=== PATIENT | female | born 1955 | race Caucasian/White ===

== ENCOUNTER 2020-01-13 13:47 | Inpatient (IN) ==
[2020-01-13] MEDS ORDERED: Ibuprofen 600 MG TABLET PO PRN (17:39)
[2020-01-13] MEDS ORDERED: *HR* HYDROcodone/Acet 5/325 mg TABLET PO PRN (17:39)
[2020-01-13] MEDS ORDERED: NON-FORMULARY MEDICATION 1 EACH EACH (Alendronate Sodium/Vitamin D3 [Fosamax Plus D 70 Mg- PO SCH ×2 (17:45→20:00)
[2020-01-13] MEDS ORDERED: NON-FORMULARY MEDICATION 1 EACH EACH (Atorvastatin Calcium [Lipitor] 20 MG) PO SCH (21:00)
[2020-01-13] MEDS: Ibuprofen 600 MG TABLET PO PRN (21:14)
[2020-01-13] MEDS: *HR* Rivaroxaban 10 MG TABLET PO SCH (21:14)
[2020-01-14 05:41] LABS: Basophils # 0.1 K/mcL (0.0-0.2); Basophils % 1.1 %; Eosinophils # 0.3 K/mcL (0.0-0.6); Eosinophils % 4.5 %; Hematocrit 28.1 % (35.3-44.9); Hemoglobin 9.6 g/dL (11.5-15.4); Immature Granulocytes % 2.5 % (0-4); Lymphocytes # 1.7 K/mcL (0.6-4.6); Lymphocytes % 26.6 %; Mean Corpuscular HGB Conc 34.2 g/dL (31.6-35.5); Mean Corpuscular Hemoglobin 34.5 pg (28.0-33.3); Mean Corpuscular Volume 101.1 fL (83.0-100.0); Mean Platelet Volume 8.8 fL (9.4-12.4); Monocytes # 0.8 K/mcL (0.0-1.3); Monocytes % 12.4 %; Neutrophils # 3.4 K/mcL (1.6-8.9); Nucleated Red Blood Cells 0.3 /100 WBC (0); Platelet Count 360 K/mcL (140-400); Red Blood Count 2.78 M/mcL (3.82-4.97); Red Cell Distribution Width 13.5 % (11.5-14.5); Segmented Neutrophils % 52.9 %; White Blood Count 6.5 K/mcL (4.3-11.1)
[2020-01-14 06:07] LABS: BUN/Creatinine Ratio 15 (6-26); Blood Urea Nitrogen 7 mg/dL (8-23); Calcium 8.7 mg/dL (8.6-10.3); Carbon Dioxide 32 mEq/L (23-29); Chloride 97 mEq/L (98-107); Glucose 97 mg/dL (70-105); Osmolality,Calculated 278 (280-300); Potassium 4.2 mEq/L (3.5-5.1); Sodium 135 mEq/L (136-145); eGFR For African Americans > 60 (> 60); eGFR For Non-African Americans > 60 (> 60)
[2020-01-14] MEDS: *HR* HYDROcodone/Acet 5/325 mg TABLET PO PRN ×3 (06:11→18:05)
[2020-01-14] MEDS ORDERED: lisinopriL 20 MG TABLET PO SCH (09:00)
[2020-01-14] MEDS ORDERED: Cholecalciferol (D-3) 1,000 UNIT (25MCG) TABLET PO SCH ×2 (09:00→16:00)
[2020-01-14] MEDS: Cholecalciferol (D-3) 1,000 UNIT (25MCG) TABLET PO SCH (09:13)
[2020-01-14] MEDS: lisinopriL 20 MG TABLET PO SCH (09:13)
[2020-01-14] MEDS ORDERED: *HR* Rivaroxaban 10 MG TABLET PO SCH (17:00)
[2020-01-14] MEDS ORDERED: Ergocalciferol (VIT D2) 50,000 UNIT (1.25MG) CAP PO SCH (17:39)
[2020-01-14] MEDS: polyethylene glycoL 3350 17 GM POWD.PACK PO PRN (18:05)
[2020-01-14] MEDS: *HR* Rivaroxaban 10 MG TABLET PO SCH (18:07)
[2020-01-15] MEDS: *HR* HYDROcodone/Acet 5/325 mg TABLET PO PRN ×2 (06:04→20:57)
[2020-01-15] MEDS: Cholecalciferol (D-3) 1,000 UNIT (25MCG) TABLET PO SCH (07:53)
[2020-01-15] MEDS: lisinopriL 20 MG TABLET PO SCH (07:53)
[2020-01-15] MEDS: polyethylene glycoL 3350 17 GM POWD.PACK PO PRN (07:54)
[2020-01-15] MEDS ORDERED: Bisacodyl 10 MG RECTAL SUPPOSITORY RC PRN (14:47)
[2020-01-15] MEDS: *HR* Rivaroxaban 10 MG TABLET PO SCH (17:28)
[2020-01-16 07:24] LABS: Basophils # 0.1 K/mcL (0.0-0.2); Basophils % 0.6 %; Eosinophils # 0.2 K/mcL (0.0-0.6); Eosinophils % 1.8 %; Hematocrit 28.2 % (35.3-44.9); Hemoglobin 9.6 g/dL (11.5-15.4); Immature Granulocytes % 1.3 % (0-4); Lymphocytes # 1.4 K/mcL (0.6-4.6); Lymphocytes % 16.3 %; Mean Corpuscular Hemoglobin 34.7 pg (28.0-33.3); Mean Corpuscular Volume 101.8 fL (83.0-100.0); Mean Platelet Volume 8.7 fL (9.4-12.4); Monocytes # 1.3 K/mcL (0.0-1.3); Monocytes % 14.7 %; Neutrophils # 5.7 K/mcL (1.6-8.9); Platelet Count 411 K/mcL (140-400); Red Blood Count 2.77 M/mcL (3.82-4.97); Red Cell Distribution Width 14.5 % (11.5-14.5); Segmented Neutrophils % 65.3 %; White Blood Count 8.7 K/mcL (4.3-11.1)
[2020-01-16 07:39] LABS: BUN/Creatinine Ratio 16 (6-26); Blood Urea Nitrogen 8 mg/dL (8-23); Carbon Dioxide 28 mEq/L (23-29); Chloride 96 mEq/L (98-107); Glucose 95 mg/dL (70-105); Osmolality,Calculated 272 (280-300); Potassium 3.8 mEq/L (3.5-5.1); Sodium 132 mEq/L (136-145); eGFR For African Americans > 60 (> 60); eGFR For Non-African Americans > 60 (> 60)
[2020-01-16] MEDS: Cholecalciferol (D-3) 1,000 UNIT (25MCG) TABLET PO SCH (08:51)
[2020-01-16] MEDS: *HR* HYDROcodone/Acet 5/325 mg TABLET PO PRN ×2 (08:51→17:29)
[2020-01-16] MEDS: lisinopriL 20 MG TABLET PO SCH (08:51)
[2020-01-16] MEDS: *HR* Rivaroxaban 10 MG TABLET PO SCH (17:29)
[2020-01-16] MEDS: Ibuprofen 600 MG TABLET PO PRN (20:16)
[2020-01-17] MEDS: lisinopriL 20 MG TABLET PO SCH (08:56)
[2020-01-17] MEDS: *HR* HYDROcodone/Acet 5/325 mg TABLET PO PRN ×3 (08:56→20:25)
[2020-01-17] MEDS: Cholecalciferol (D-3) 1,000 UNIT (25MCG) TABLET PO SCH (08:56)
[2020-01-17] MEDS: *HR* Rivaroxaban 10 MG TABLET PO SCH (16:49)
[2020-01-17] MEDS: Ibuprofen 600 MG TABLET PO PRN (20:25)
[2020-01-18] MEDS: Cholecalciferol (D-3) 1,000 UNIT (25MCG) TABLET PO SCH (07:57)
[2020-01-18] MEDS: lisinopriL 20 MG TABLET PO SCH (07:57)
[2020-01-18] MEDS: *HR* HYDROcodone/Acet 5/325 mg TABLET PO PRN ×3 (08:14→22:48)
[2020-01-18] MEDS: *HR* Rivaroxaban 10 MG TABLET PO SCH (16:53)
[2020-01-18] MEDS: Ibuprofen 600 MG TABLET PO PRN (22:48)
[2020-01-19] MEDS: Cholecalciferol (D-3) 1,000 UNIT (25MCG) TABLET PO SCH (09:34)
[2020-01-19] MEDS: lisinopriL 20 MG TABLET PO SCH (09:34)
[2020-01-19] MEDS: *HR* HYDROcodone/Acet 5/325 mg TABLET PO PRN ×3 (09:37→21:19)
[2020-01-19] MEDS: *HR* Rivaroxaban 10 MG TABLET PO SCH (17:26)
[2020-01-19] MEDS: Ibuprofen 600 MG TABLET PO PRN (21:19)
[2020-01-20] MEDS: lisinopriL 20 MG TABLET PO SCH (09:53)
[2020-01-20] MEDS: Cholecalciferol (D-3) 1,000 UNIT (25MCG) TABLET PO SCH (09:53)
[2020-01-20] MEDS: *HR* HYDROcodone/Acet 5/325 mg TABLET PO PRN ×3 (10:04→21:32)
[2020-01-20] MEDS: *HR* Rivaroxaban 10 MG TABLET PO SCH (16:33)
[2020-01-20] MEDS: tiZANidine 4 MG TABLET PO PRN (21:32)
[2020-01-21] MEDS ORDERED: Ergocalciferol (VIT D2) 50,000 UNIT (1.25MG) CAP PO SCH (09:00)
[2020-01-21] MEDS: Cholecalciferol (D-3) 1,000 UNIT (25MCG) TABLET PO SCH (09:06)
[2020-01-21] MEDS: lisinopriL 20 MG TABLET PO SCH (09:06)
[2020-01-21] MEDS: *HR* HYDROcodone/Acet 5/325 mg TABLET PO PRN ×3 (09:07→22:11)
[2020-01-21] MEDS: *HR* Rivaroxaban 10 MG TABLET PO SCH (18:07)
[2020-01-22] MEDS: *HR* HYDROcodone/Acet 5/325 mg TABLET PO PRN ×4 (04:24→20:01)
[2020-01-22] MEDS: tiZANidine 4 MG TABLET PO PRN ×2 (04:24→20:01)
[2020-01-22] MEDS: lisinopriL 20 MG TABLET PO SCH (09:51)
[2020-01-22] MEDS: polyethylene glycoL 3350 17 GM POWD.PACK PO PRN (09:53)
[2020-01-22] MEDS: Cholecalciferol (D-3) 1,000 UNIT (25MCG) TABLET PO SCH (09:53)
[2020-01-22] MEDS: *HR* Rivaroxaban 10 MG TABLET PO SCH (17:27)
[2020-01-23] MEDS: *HR* HYDROcodone/Acet 5/325 mg TABLET PO PRN ×4 (03:43→21:46)
[2020-01-23] MEDS: lisinopriL 20 MG TABLET PO SCH (09:13)
[2020-01-23] MEDS: polyethylene glycoL 3350 17 GM POWD.PACK PO SCH (09:13)
[2020-01-23] MEDS: Cholecalciferol (D-3) 1,000 UNIT (25MCG) TABLET PO SCH (09:14)
[2020-01-23] MEDS: Ibuprofen 600 MG TABLET PO PRN (11:27)
[2020-01-23] MEDS: *HR* Rivaroxaban 10 MG TABLET PO SCH (17:17)
[2020-01-24] MEDS: Cholecalciferol (D-3) 1,000 UNIT (25MCG) TABLET PO SCH (07:53)
[2020-01-24] MEDS: *HR* HYDROcodone/Acet 5/325 mg TABLET PO PRN ×2 (07:53→17:35)
[2020-01-24] MEDS: lisinopriL 20 MG TABLET PO SCH (07:54)
[2020-01-24] MEDS: polyethylene glycoL 3350 17 GM POWD.PACK PO SCH (07:54)
[2020-01-24] MEDS: Ibuprofen 600 MG TABLET PO PRN (11:51)
[2020-01-24] MEDS: *HR* Rivaroxaban 10 MG TABLET PO SCH (17:31)
[2020-01-24] MEDS: tiZANidine 4 MG TABLET PO PRN (21:57)
[2020-01-25] MEDS: *HR* HYDROcodone/Acet 5/325 mg TABLET PO PRN ×3 (04:07→22:12)
[2020-01-25] MEDS: polyethylene glycoL 3350 17 GM POWD.PACK PO SCH (09:20)
[2020-01-25] MEDS: lisinopriL 20 MG TABLET PO SCH (09:20)
[2020-01-25] MEDS: Cholecalciferol (D-3) 1,000 UNIT (25MCG) TABLET PO SCH (09:20)
[2020-01-25] MEDS: *HR* Rivaroxaban 10 MG TABLET PO SCH (18:16)
[2020-01-26] MEDS: lisinopriL 20 MG TABLET PO SCH (09:47)
[2020-01-26] MEDS: polyethylene glycoL 3350 17 GM POWD.PACK PO SCH (09:47)
[2020-01-26] MEDS: *HR* HYDROcodone/Acet 5/325 mg TABLET PO PRN ×3 (09:47→21:21)
[2020-01-26] MEDS: Cholecalciferol (D-3) 1,000 UNIT (25MCG) TABLET PO SCH (09:47)
[2020-01-26] MEDS: *HR* Rivaroxaban 10 MG TABLET PO SCH (16:56)
[2020-01-27] MEDS: Cholecalciferol (D-3) 1,000 UNIT (25MCG) TABLET PO SCH (10:11)
[2020-01-27] MEDS: lisinopriL 20 MG TABLET PO SCH (10:11)
[2020-01-27] MEDS: polyethylene glycoL 3350 17 GM POWD.PACK PO SCH (10:11)
[2020-01-27] MEDS: *HR* HYDROcodone/Acet 5/325 mg TABLET PO PRN ×2 (10:15→16:33)
[2020-01-27] MEDS: *HR* Rivaroxaban 10 MG TABLET PO SCH (16:34)
[2020-01-27] MEDS: Ibuprofen 600 MG TABLET PO PRN (22:10)
[2020-01-28] MEDS: *HR* HYDROcodone/Acet 5/325 mg TABLET PO PRN ×2 (04:20→09:44)
[2020-01-28 06:21] LABS: Basophils # 0.1 K/mcL (0.0-0.2); Basophils % 1.7 %; Eosinophils # 0.8 K/mcL (0.0-0.6); Hematocrit 29.1 % (35.3-44.9); Hemoglobin 9.7 g/dL (11.5-15.4); Immature Granulocytes % 0.5 % (0-4); Lymphocytes # 1.5 K/mcL (0.6-4.6); Lymphocytes % 22.2 %; Mean Corpuscular HGB Conc 33.3 g/dL (31.6-35.5); Mean Corpuscular Volume 102.1 fL (83.0-100.0); Mean Platelet Volume 8.9 fL (9.4-12.4); Monocytes # 0.8 K/mcL (0.0-1.3); Monocytes % 11.9 %; Neutrophils # 3.4 K/mcL (1.6-8.9); Platelet Count 398 K/mcL (140-400); Red Blood Count 2.85 M/mcL (3.82-4.97); Red Cell Distribution Width 13.9 % (11.5-14.5); Segmented Neutrophils % 51.7 %; White Blood Count 6.6 K/mcL (4.3-11.1)
[2020-01-28 06:40] LABS: BUN/Creatinine Ratio 35 (6-26); Blood Urea Nitrogen 17 mg/dL (8-23); Calcium 9.2 mg/dL (8.6-10.3); Carbon Dioxide 27 mEq/L (23-29); Chloride 100 mEq/L (98-107); Glucose 87 mg/dL (70-105); Osmolality,Calculated 281 (280-300); Potassium 4.4 mEq/L (3.5-5.1); Sodium 135 mEq/L (136-145); eGFR For African Americans > 60 (> 60); eGFR For Non-African Americans > 60 (> 60)
[2020-01-28] MEDS: Cholecalciferol (D-3) 1,000 UNIT (25MCG) TABLET PO SCH (09:43)
[2020-01-28] MEDS: polyethylene glycoL 3350 17 GM POWD.PACK PO SCH (09:44)
[2020-01-28] MEDS: lisinopriL 20 MG TABLET PO SCH (09:44)
[2020-01-28] MEDS: Ergocalciferol (VIT D2) 50,000 UNIT (1.25MG) CAP PO SCH (10:39)
[2020-01-28] MEDS: *HR* Rivaroxaban 10 MG TABLET PO SCH (17:52)
[2020-01-28] MEDS: Ibuprofen 600 MG TABLET PO PRN (21:43)
[2020-01-29] MEDS: Cholecalciferol (D-3) 1,000 UNIT (25MCG) TABLET PO SCH (07:54)
[2020-01-29] MEDS: lisinopriL 20 MG TABLET PO SCH (07:54)
[2020-01-29] MEDS: polyethylene glycoL 3350 17 GM POWD.PACK PO SCH (07:54)
[2020-01-29] MEDS: *HR* HYDROcodone/Acet 5/325 mg TABLET PO PRN (08:02)
[2020-01-29] MEDS: *HR* Rivaroxaban 10 MG TABLET PO SCH (16:30)
[2020-01-29] MEDS: Ibuprofen 600 MG TABLET PO PRN (20:36)
[2020-01-30] MEDS: lisinopriL 20 MG TABLET PO SCH (07:48)
[2020-01-30] MEDS: Cholecalciferol (D-3) 1,000 UNIT (25MCG) TABLET PO SCH (07:49)
[2020-01-30] MEDS: polyethylene glycoL 3350 17 GM POWD.PACK PO SCH (07:49)
[2020-01-30] MEDS: *HR* HYDROcodone/Acet 5/325 mg TABLET PO PRN (07:49)
[2020-01-30] MEDS: *HR* Rivaroxaban 10 MG TABLET PO SCH (16:59)
[2020-01-30] MEDS: Ibuprofen 600 MG TABLET PO PRN (20:57)
[2020-01-31] MEDS: lisinopriL 20 MG TABLET PO SCH (08:24)
[2020-01-31] MEDS: Cholecalciferol (D-3) 1,000 UNIT (25MCG) TABLET PO SCH (08:24)
[2020-01-31] MEDS: polyethylene glycoL 3350 17 GM POWD.PACK PO SCH (08:25)
[2020-01-31] MEDS: *HR* HYDROcodone/Acet 5/325 mg TABLET PO PRN ×3 (08:27→20:41)
[2020-01-31] MEDS: *HR* Rivaroxaban 10 MG TABLET PO SCH (16:31)
[2020-02-01] MEDS: lisinopriL 20 MG TABLET PO SCH (09:14)
[2020-02-01] MEDS: Cholecalciferol (D-3) 1,000 UNIT (25MCG) TABLET PO SCH (09:14)
[2020-02-01] MEDS: polyethylene glycoL 3350 17 GM POWD.PACK PO SCH (09:14)
[2020-02-01] MEDS: *HR* HYDROcodone/Acet 5/325 mg TABLET PO PRN ×2 (09:14→19:14)
[2020-02-01] MEDS: *HR* Rivaroxaban 10 MG TABLET PO SCH (17:10)
[2020-02-02] MEDS: Ibuprofen 600 MG TABLET PO PRN (09:30)
[2020-02-02] MEDS: polyethylene glycoL 3350 17 GM POWD.PACK PO SCH (10:10)
[2020-02-02] MEDS: Cholecalciferol (D-3) 1,000 UNIT (25MCG) TABLET PO SCH (10:10)
[2020-02-02] MEDS: lisinopriL 20 MG TABLET PO SCH (10:10)
[2020-02-02] MEDS: *HR* Rivaroxaban 10 MG TABLET PO SCH (16:15)
[2020-02-02] MEDS: *HR* HYDROcodone/Acet 5/325 mg TABLET PO PRN (17:02)
[2020-02-03] MEDS: *HR* HYDROcodone/Acet 5/325 mg TABLET PO PRN ×2 (09:46→15:16)
[2020-02-03] MEDS: Cholecalciferol (D-3) 1,000 UNIT (25MCG) TABLET PO SCH (09:46)
[2020-02-03] MEDS: polyethylene glycoL 3350 17 GM POWD.PACK PO SCH (09:46)
[2020-02-03] MEDS: lisinopriL 20 MG TABLET PO SCH (09:47)
[2020-02-03] MEDS: *HR* Rivaroxaban 10 MG TABLET PO SCH (17:47)
[2020-02-03] MEDS: Ibuprofen 600 MG TABLET PO PRN (17:47)
[2020-02-04] MEDS: lisinopriL 20 MG TABLET PO SCH (09:03)
[2020-02-04] MEDS: polyethylene glycoL 3350 17 GM POWD.PACK PO SCH (09:04)
[2020-02-04] MEDS: Cholecalciferol (D-3) 1,000 UNIT (25MCG) TABLET PO SCH (09:04)
[2020-02-04] MEDS: Ergocalciferol (VIT D2) 50,000 UNIT (1.25MG) CAP PO SCH (09:04)
[2020-02-04] MEDS: *HR* HYDROcodone/Acet 5/325 mg TABLET PO PRN ×2 (09:05→16:00)
[2020-02-04] MEDS: *HR* Rivaroxaban 10 MG TABLET PO SCH (16:00)
[2020-02-04] MEDS: Ibuprofen 600 MG TABLET PO PRN (20:11)
[2020-02-05] MEDS: polyethylene glycoL 3350 17 GM POWD.PACK PO SCH (08:06)
[2020-02-05] MEDS: lisinopriL 20 MG TABLET PO SCH (08:06)
[2020-02-05] MEDS: Cholecalciferol (D-3) 1,000 UNIT (25MCG) TABLET PO SCH (08:06)
[2020-02-05] MEDS: *HR* HYDROcodone/Acet 5/325 mg TABLET PO PRN ×2 (08:20→18:34)
[2020-02-05] MEDS: *HR* Rivaroxaban 10 MG TABLET PO SCH (17:36)
[2020-02-06] MEDS: *HR* HYDROcodone/Acet 5/325 mg TABLET PO PRN ×2 (08:30→20:52)
[2020-02-06] MEDS: lisinopriL 20 MG TABLET PO SCH (08:32)
[2020-02-06] MEDS: Cholecalciferol (D-3) 1,000 UNIT (25MCG) TABLET PO SCH (08:32)
[2020-02-06] MEDS: polyethylene glycoL 3350 17 GM POWD.PACK PO SCH (08:33)
[2020-02-06] MEDS: *HR* Rivaroxaban 10 MG TABLET PO SCH (16:54)
[2020-02-06] MEDS: Ibuprofen 600 MG TABLET PO PRN (16:58)
[2020-02-07] MEDS: lisinopriL 20 MG TABLET PO SCH (09:38)
[2020-02-07] MEDS: Cholecalciferol (D-3) 1,000 UNIT (25MCG) TABLET PO SCH (09:39)
[2020-02-07] MEDS: polyethylene glycoL 3350 17 GM POWD.PACK PO SCH (09:39)
[2020-02-07] MEDS: *HR* HYDROcodone/Acet 5/325 mg TABLET PO PRN ×3 (09:39→22:02)
[2020-02-07] MEDS: *HR* Rivaroxaban 10 MG TABLET PO SCH (17:59)
[2020-02-08] MEDS: Cholecalciferol (D-3) 1,000 UNIT (25MCG) TABLET PO SCH (08:28)
[2020-02-08] MEDS: lisinopriL 20 MG TABLET PO SCH (08:29)
[2020-02-08] MEDS: polyethylene glycoL 3350 17 GM POWD.PACK PO SCH (08:29)
[2020-02-08] MEDS: *HR* Rivaroxaban 10 MG TABLET PO SCH (16:39)
[2020-02-08] MEDS: *HR* HYDROcodone/Acet 5/325 mg TABLET PO PRN (16:40)
[2020-02-08] MEDS: Ibuprofen 600 MG TABLET PO PRN (20:54)
[2020-02-09 07:05] LABS: Basophils # 0.1 K/mcL (0.0-0.2); Basophils % 1.1 %; Eosinophils # 0.8 K/mcL (0.0-0.6); Eosinophils % 11.2 %; Hematocrit 31.6 % (35.3-44.9); Hemoglobin 10.4 g/dL (11.5-15.4); Immature Granulocytes % 0.3 % (0-4); Lymphocytes # 1.8 K/mcL (0.6-4.6); Lymphocytes % 26.1 %; Mean Corpuscular HGB Conc 32.9 g/dL (31.6-35.5); Mean Corpuscular Hemoglobin 33.9 pg (28.0-33.3); Mean Corpuscular Volume 102.9 fL (83.0-100.0); Mean Platelet Volume 9.3 fL (9.4-12.4); Monocytes # 0.8 K/mcL (0.0-1.3); Monocytes % 10.9 %; Neutrophils # 3.5 K/mcL (1.6-8.9); Platelet Count 334 K/mcL (140-400); Red Blood Count 3.07 M/mcL (3.82-4.97); Red Cell Distribution Width 14.2 % (11.5-14.5); Segmented Neutrophils % 50.4 %
[2020-02-09 07:32] LABS: BUN/Creatinine Ratio 42 (6-26); Blood Urea Nitrogen 19 mg/dL (8-23); Calcium 9.3 mg/dL (8.6-10.3); Carbon Dioxide 28 mEq/L (23-29); Chloride 102 mEq/L (98-107); Glucose 81 mg/dL (70-105); Osmolality,Calculated 287 (280-300); Potassium 4.1 mEq/L (3.5-5.1); Sodium 138 mEq/L (136-145); eGFR For African Americans > 60 (> 60); eGFR For Non-African Americans > 60 (> 60)
[2020-02-09] MEDS: Cholecalciferol (D-3) 1,000 UNIT (25MCG) TABLET PO SCH (08:42)
[2020-02-09] MEDS: lisinopriL 20 MG TABLET PO SCH (08:42)
[2020-02-09] MEDS: polyethylene glycoL 3350 17 GM POWD.PACK PO SCH (08:42)
[2020-02-09] MEDS: *HR* Rivaroxaban 10 MG TABLET PO SCH (16:18)
[2020-02-09] MEDS: *HR* HYDROcodone/Acet 5/325 mg TABLET PO PRN (16:18)
[2020-02-09] MEDS: Ibuprofen 600 MG TABLET PO PRN (20:46)
[2020-02-10] MEDS: Cholecalciferol (D-3) 1,000 UNIT (25MCG) TABLET PO SCH (09:27)
[2020-02-10] MEDS: polyethylene glycoL 3350 17 GM POWD.PACK PO SCH (09:28)
[2020-02-10] MEDS: lisinopriL 20 MG TABLET PO SCH (09:28)
[2020-02-10] MEDS: *HR* HYDROcodone/Acet 5/325 mg TABLET PO PRN ×2 (09:28→17:09)
[2020-02-10] MEDS: *HR* Rivaroxaban 10 MG TABLET PO SCH (17:09)
[2020-02-10] MEDS: Ibuprofen 600 MG TABLET PO PRN (20:30)
[2020-02-11] MEDS: lisinopriL 20 MG TABLET PO SCH (10:00)
[2020-02-11] MEDS: Cholecalciferol (D-3) 1,000 UNIT (25MCG) TABLET PO SCH (10:03)
[2020-02-11] MEDS: Ergocalciferol (VIT D2) 50,000 UNIT (1.25MG) CAP PO SCH (10:03)
[2020-02-11] MEDS: *HR* HYDROcodone/Acet 5/325 mg TABLET PO PRN ×2 (10:07→19:59)
[2020-02-11] MEDS: polyethylene glycoL 3350 17 GM POWD.PACK PO SCH (10:10)
[2020-02-11] MEDS: *HR* Rivaroxaban 10 MG TABLET PO SCH (17:02)
[2020-02-12] MEDS: lisinopriL 20 MG TABLET PO SCH (08:59)
[2020-02-12] MEDS: polyethylene glycoL 3350 17 GM POWD.PACK PO SCH (08:59)
[2020-02-12] MEDS: Ibuprofen 600 MG TABLET PO PRN ×2 (08:59→19:58)
[2020-02-12] MEDS: Cholecalciferol (D-3) 1,000 UNIT (25MCG) TABLET PO SCH (09:00)
[2020-02-12] MEDS: *HR* Rivaroxaban 10 MG TABLET PO SCH (17:23)
[2020-02-12] MEDS: *HR* HYDROcodone/Acet 5/325 mg TABLET PO PRN (17:23)
[2020-02-13] MEDS: *HR* HYDROcodone/Acet 5/325 mg TABLET PO PRN ×2 (10:42→19:40)
[2020-02-13] MEDS: polyethylene glycoL 3350 17 GM POWD.PACK PO SCH (10:43)
[2020-02-13] MEDS: lisinopriL 20 MG TABLET PO SCH (10:43)
[2020-02-13] MEDS: Cholecalciferol (D-3) 1,000 UNIT (25MCG) TABLET PO SCH (10:43)
[2020-02-13] MEDS: Ibuprofen 600 MG TABLET PO PRN (13:37)
[2020-02-13] MEDS: *HR* Rivaroxaban 10 MG TABLET PO SCH (17:00)
[2020-02-14] MEDS: Ibuprofen 600 MG TABLET PO PRN (04:18)
[2020-02-14 06:47] VITALS: BP 120/69
[2020-02-14] MEDS: lisinopriL 20 MG TABLET PO SCH (08:15)
[2020-02-14] MEDS: Cholecalciferol (D-3) 1,000 UNIT (25MCG) TABLET PO SCH (08:15)
[2020-02-14] MEDS: *HR* HYDROcodone/Acet 5/325 mg TABLET PO PRN (08:24)
[2020-02-14] MEDS: polyethylene glycoL 3350 17 GM POWD.PACK PO SCH (08:42)
[2020-02-14] MEDS ORDERED: FLU Vac QV 20-21 (6Month+)/PF 0.5 ML SYRINGE IM ONE (11:25)
== END 2020-02-14 11:46 | disposition home health service (06) | DRG 561 ==
LOC: INPPIK 19:15
PROVIDERS: ADMIT Family Medicine; ATTEND Family Medicine

== ENCOUNTER 2020-10-17 16:39 | Inpatient (IN) ==
[2020-10-17] MEDS ORDERED: Sennosides/Docusate Sodium TABLET PO PRN (18:11)
[2020-10-17] MEDS: *HR* HYDROcodone/Acet 5/325 mg TABLET PO PRN (22:11)
[2020-10-18 06:15] LABS: Basophils # 0.1 K/mcL (0.0-0.2); Basophils % 0.9 %; Eosinophils # 0.3 K/mcL (0.0-0.6); Eosinophils % 2.9 %; Hematocrit 33.8 % (35.3-44.9); Hemoglobin 11.5 g/dL (11.5-15.4); Immature Granulocytes % 0.9 % (0-4); Lymphocytes % 22.1 %; Mean Corpuscular Volume 102.7 fL (83.0-100.0); Monocytes # 0.9 K/mcL (0.0-1.3); Monocytes % 9.7 %; Neutrophils # 5.7 K/mcL (1.6-8.9); Platelet Count 310 K/mcL (140-400); Red Blood Count 3.29 M/mcL (3.82-4.97); Red Cell Distribution Width 13.7 % (11.5-14.5); Segmented Neutrophils % 63.5 %; White Blood Count 8.9 K/mcL (4.3-11.1)
[2020-10-18 06:33] LABS: BUN/Creatinine Ratio 17 (6-26); Blood Urea Nitrogen 9 mg/dL (8-23); Calcium 9.2 mg/dL (8.6-10.3); Carbon Dioxide 29 mEq/L (23-29); Chloride 100 mEq/L (98-107); Glucose 94 mg/dL (70-105); Osmolality,Calculated 282 (280-300); Sodium 137 mEq/L (136-145); eGFR For African Americans > 60 (> 60); eGFR For Non-African Americans > 60 (> 60)
[2020-10-18] MEDS: Cholecalciferol (D-3) 1,000 UNIT (25MCG) TABLET PO SCH (08:43)
[2020-10-18] MEDS: *HR* HYDROcodone/Acet 5/325 mg TABLET PO PRN ×2 (08:43→13:54)
[2020-10-18] MEDS: lisinopriL 20 MG TABLET PO SCH (08:44)
[2020-10-18] MEDS: Ibuprofen 600 MG TABLET PO PRN ×2 (08:44→17:10)
[2020-10-18] MEDS: *HR* Rivaroxaban 10 MG TABLET PO SCH (17:10)
[2020-10-18] MEDS: Nicotine 14 MG PATCH.TD24 TD SCH (17:10)
[2020-10-18] MEDS: *HR* HYDROcodone/Acet 7.5/325 mg TABLET PO PRN (20:48)
[2020-10-18] MEDS: Melatonin 3 MG TABLET PO PRN (20:49)
[2020-10-19] MEDS: *HR* HYDROcodone/Acet 7.5/325 mg TABLET PO PRN ×3 (04:10→16:00)
[2020-10-19] MEDS: lisinopriL 20 MG TABLET PO SCH (10:10)
[2020-10-19] MEDS: Nicotine 14 MG PATCH.TD24 TD SCH (10:10)
[2020-10-19] MEDS: Cholecalciferol (D-3) 1,000 UNIT (25MCG) TABLET PO SCH (10:10)
[2020-10-19] MEDS: Ibuprofen 600 MG TABLET PO PRN ×2 (10:11→20:45)
[2020-10-19] MEDS: *HR* HYDROcodone/Acet 5/325 mg TABLET PO PRN (12:43)
[2020-10-19] MEDS: tiZANidine 4 MG TABLET PO PRN (15:59)
[2020-10-19] MEDS: *HR* Rivaroxaban 10 MG TABLET PO SCH (18:09)
[2020-10-19] MEDS ORDERED: 0.9 % Sodium Chloride 500 ML IVC ONE (18:43)
[2020-10-19] MEDS: Melatonin 3 MG TABLET PO PRN (20:45)
[2020-10-20] MEDS: Ibuprofen 600 MG TABLET PO PRN ×2 (06:23→20:33)
[2020-10-20] MEDS: *HR* HYDROcodone/Acet 7.5/325 mg TABLET PO PRN ×2 (06:24→22:07)
[2020-10-20] MEDS: Nicotine 14 MG PATCH.TD24 TD SCH (09:21)
[2020-10-20] MEDS: lisinopriL 20 MG TABLET PO SCH (09:22)
[2020-10-20] MEDS: Cholecalciferol (D-3) 1,000 UNIT (25MCG) TABLET PO SCH (09:22)
[2020-10-20] MEDS: Ergocalciferol (VIT D2) 50,000 UNIT (1.25MG) CAP PO SCH (09:30)
[2020-10-20] MEDS: tiZANidine 4 MG TABLET PO PRN (10:37)
[2020-10-20] MEDS: polyethylene glycoL 3350 17 GM POWD.PACK PO SCH (17:30)
[2020-10-20] MEDS: *HR* HYDROcodone/Acet 5/325 mg TABLET PO PRN (17:30)
[2020-10-20] MEDS: *HR* Rivaroxaban 10 MG TABLET PO SCH (17:31)
[2020-10-20] MEDS: Sennosides/Docusate Sodium TABLET PO SCH (20:35)
[2020-10-20] MEDS: Melatonin 3 MG TABLET PO PRN (22:07)
[2020-10-21] MEDS: Nicotine 14 MG PATCH.TD24 TD SCH (08:22)
[2020-10-21] MEDS: polyethylene glycoL 3350 17 GM POWD.PACK PO SCH (08:22)
[2020-10-21] MEDS: Sennosides/Docusate Sodium TABLET PO SCH ×2 (08:22→21:08)
[2020-10-21] MEDS: Ibuprofen 600 MG TABLET PO PRN ×2 (08:22→22:16)
[2020-10-21] MEDS: *HR* HYDROcodone/Acet 5/325 mg TABLET PO PRN (08:23)
[2020-10-21] MEDS: lisinopriL 20 MG TABLET PO SCH (08:23)
[2020-10-21] MEDS: Cholecalciferol (D-3) 1,000 UNIT (25MCG) TABLET PO SCH (08:24)
[2020-10-21] MEDS: *HR* Rivaroxaban 10 MG TABLET PO SCH (15:46)
[2020-10-21] MEDS: *HR* HYDROcodone/Acet 7.5/325 mg TABLET PO PRN ×2 (15:46→22:16)
[2020-10-21] MEDS: Melatonin 3 MG TABLET PO PRN (22:16)
[2020-10-22] MEDS: *HR* HYDROcodone/Acet 7.5/325 mg TABLET PO PRN ×2 (03:55→23:29)
[2020-10-22 07:32] LABS: Basophils # 0.1 K/mcL (0.0-0.2); Basophils % 1.1 %; Eosinophils # 0.2 K/mcL (0.0-0.6); Eosinophils % 2.3 %; Hematocrit 32.8 % (35.3-44.9); Immature Granulocytes % 0.7 % (0-4); Mean Corpuscular HGB Conc 33.5 g/dL (31.6-35.5); Mean Corpuscular Hemoglobin 34.9 pg (28.0-33.3); Mean Corpuscular Volume 104.1 fL (83.0-100.0); Mean Platelet Volume 9.1 fL (9.4-12.4); Monocytes # 0.9 K/mcL (0.0-1.3); Monocytes % 11.9 %; Neutrophils # 4.3 K/mcL (1.6-8.9); Platelet Count 404 K/mcL (140-400); Red Blood Count 3.15 M/mcL (3.82-4.97); White Blood Count 7.6 K/mcL (4.3-11.1)
[2020-10-22 07:56] LABS: BUN/Creatinine Ratio 20 (6-26); Blood Urea Nitrogen 10 mg/dL (8-23); Calcium 9.1 mg/dL (8.6-10.3); Carbon Dioxide 28 mEq/L (23-29); Chloride 102 mEq/L (98-107); Glucose 88 mg/dL (70-105); Osmolality,Calculated 282 (280-300); Sodium 137 mEq/L (136-145); eGFR For African Americans > 60 (> 60); eGFR For Non-African Americans > 60 (> 60)
[2020-10-22] MEDS: Cholecalciferol (D-3) 1,000 UNIT (25MCG) TABLET PO SCH (08:33)
[2020-10-22] MEDS: *HR* HYDROcodone/Acet 5/325 mg TABLET PO PRN ×2 (08:33→17:20)
[2020-10-22] MEDS: lisinopriL 20 MG TABLET PO SCH (08:33)
[2020-10-22] MEDS: Ibuprofen 600 MG TABLET PO PRN ×2 (08:33→23:28)
[2020-10-22] MEDS: polyethylene glycoL 3350 17 GM POWD.PACK PO SCH (08:34)
[2020-10-22] MEDS: Nicotine 14 MG PATCH.TD24 TD SCH (08:34)
[2020-10-22] MEDS: Sennosides/Docusate Sodium TABLET PO SCH ×2 (08:34→20:37)
[2020-10-22] MEDS: *HR* Rivaroxaban 10 MG TABLET PO SCH (17:17)
[2020-10-22] MEDS: Melatonin 3 MG TABLET PO PRN (23:29)
[2020-10-23] MEDS: Ibuprofen 600 MG TABLET PO PRN ×2 (08:58→22:13)
[2020-10-23] MEDS: *HR* HYDROcodone/Acet 7.5/325 mg TABLET PO PRN ×2 (08:58→22:13)
[2020-10-23] MEDS: polyethylene glycoL 3350 17 GM POWD.PACK PO SCH (09:00)
[2020-10-23] MEDS: Sennosides/Docusate Sodium TABLET PO SCH ×2 (09:00→20:54)
[2020-10-23] MEDS: Cholecalciferol (D-3) 1,000 UNIT (25MCG) TABLET PO SCH (09:00)
[2020-10-23] MEDS: lisinopriL 20 MG TABLET PO SCH (09:00)
[2020-10-23] MEDS: Nicotine 14 MG PATCH.TD24 TD SCH (09:00)
[2020-10-23] MEDS: *HR* HYDROcodone/Acet 5/325 mg TABLET PO PRN (16:09)
[2020-10-23] MEDS: *HR* Rivaroxaban 10 MG TABLET PO SCH (16:09)
[2020-10-23] MEDS: Melatonin 3 MG TABLET PO PRN (22:13)
[2020-10-24] MEDS: polyethylene glycoL 3350 17 GM POWD.PACK PO SCH (10:03)
[2020-10-24] MEDS: Ibuprofen 600 MG TABLET PO PRN (10:03)
[2020-10-24] MEDS: Cholecalciferol (D-3) 1,000 UNIT (25MCG) TABLET PO SCH (10:03)
[2020-10-24] MEDS: *HR* HYDROcodone/Acet 7.5/325 mg TABLET PO PRN (10:03)
[2020-10-24] MEDS: lisinopriL 20 MG TABLET PO SCH (10:03)
[2020-10-24] MEDS: Sennosides/Docusate Sodium TABLET PO SCH ×2 (10:03→21:19)
[2020-10-24] MEDS: Nicotine 14 MG PATCH.TD24 TD SCH (10:04)
[2020-10-24] MEDS: *HR* HYDROcodone/Acet 5/325 mg TABLET PO PRN (17:21)
[2020-10-24] MEDS: *HR* Rivaroxaban 10 MG TABLET PO SCH (17:21)
[2020-10-25] MEDS: Ibuprofen 600 MG TABLET PO PRN ×3 (00:21→21:31)
[2020-10-25] MEDS: Melatonin 3 MG TABLET PO PRN ×2 (00:21→21:31)
[2020-10-25] MEDS: *HR* HYDROcodone/Acet 7.5/325 mg TABLET PO PRN ×3 (00:22→21:31)
[2020-10-25] MEDS: Nicotine 14 MG PATCH.TD24 TD SCH (09:28)
[2020-10-25] MEDS: polyethylene glycoL 3350 17 GM POWD.PACK PO SCH (09:28)
[2020-10-25] MEDS: Sennosides/Docusate Sodium TABLET PO SCH ×2 (09:28→21:27)
[2020-10-25] MEDS: lisinopriL 20 MG TABLET PO SCH (09:29)
[2020-10-25] MEDS: Cholecalciferol (D-3) 1,000 UNIT (25MCG) TABLET PO SCH (09:29)
[2020-10-25] MEDS: *HR* Rivaroxaban 10 MG TABLET PO SCH (16:47)
[2020-10-25] MEDS: *HR* HYDROcodone/Acet 5/325 mg TABLET PO PRN (16:47)
[2020-10-26] MEDS: polyethylene glycoL 3350 17 GM POWD.PACK PO SCH (09:11)
[2020-10-26] MEDS: Sennosides/Docusate Sodium TABLET PO SCH ×2 (09:11→20:56)
[2020-10-26] MEDS: Nicotine 14 MG PATCH.TD24 TD SCH (09:12)
[2020-10-26] MEDS: lisinopriL 20 MG TABLET PO SCH (09:12)
[2020-10-26] MEDS: Cholecalciferol (D-3) 1,000 UNIT (25MCG) TABLET PO SCH (09:12)
[2020-10-26] MEDS: *HR* HYDROcodone/Acet 7.5/325 mg TABLET PO PRN ×2 (09:19→22:10)
[2020-10-26] MEDS: Ibuprofen 600 MG TABLET PO PRN ×2 (09:19→22:10)
[2020-10-26] MEDS: *HR* Rivaroxaban 10 MG TABLET PO SCH (16:10)
[2020-10-26] MEDS: Melatonin 3 MG TABLET PO PRN (22:10)
[2020-10-27] MEDS: lisinopriL 20 MG TABLET PO SCH (08:42)
[2020-10-27] MEDS: polyethylene glycoL 3350 17 GM POWD.PACK PO SCH (08:42)
[2020-10-27] MEDS: Cholecalciferol (D-3) 1,000 UNIT (25MCG) TABLET PO SCH (08:43)
[2020-10-27] MEDS: Nicotine 14 MG PATCH.TD24 TD SCH (08:43)
[2020-10-27] MEDS: Sennosides/Docusate Sodium TABLET PO SCH ×2 (08:43→21:31)
[2020-10-27] MEDS: Ergocalciferol (VIT D2) 50,000 UNIT (1.25MG) CAP PO SCH (08:52)
[2020-10-27] MEDS: Ibuprofen 600 MG TABLET PO PRN ×2 (08:58→23:32)
[2020-10-27] MEDS: *HR* HYDROcodone/Acet 7.5/325 mg TABLET PO PRN (08:58)
[2020-10-27] MEDS: *HR* HYDROcodone/Acet 5/325 mg TABLET PO PRN ×2 (18:17→23:32)
[2020-10-27] MEDS: *HR* Rivaroxaban 10 MG TABLET PO SCH (18:17)
[2020-10-27] MEDS: Melatonin 3 MG TABLET PO PRN (21:28)
[2020-10-28] MEDS: Nicotine 14 MG PATCH.TD24 TD SCH (09:43)
[2020-10-28] MEDS: polyethylene glycoL 3350 17 GM POWD.PACK PO SCH (09:43)
[2020-10-28] MEDS: *HR* HYDROcodone/Acet 7.5/325 mg TABLET PO PRN ×2 (09:43→21:34)
[2020-10-28] MEDS: Sennosides/Docusate Sodium TABLET PO SCH ×2 (09:44→21:42)
[2020-10-28] MEDS: Cholecalciferol (D-3) 1,000 UNIT (25MCG) TABLET PO SCH (09:44)
[2020-10-28] MEDS: lisinopriL 20 MG TABLET PO SCH (09:44)
[2020-10-28] MEDS: Ibuprofen 600 MG TABLET PO PRN ×2 (09:50→21:34)
[2020-10-28] MEDS: *HR* Rivaroxaban 10 MG TABLET PO SCH (16:33)
[2020-10-28] MEDS: *HR* HYDROcodone/Acet 5/325 mg TABLET PO PRN (16:33)
[2020-10-28] MEDS: Melatonin 3 MG TABLET PO PRN (21:47)
[2020-10-29] MEDS: Sennosides/Docusate Sodium TABLET PO SCH ×2 (09:33→21:54)
[2020-10-29] MEDS: Ibuprofen 600 MG TABLET PO PRN ×2 (09:33→21:53)
[2020-10-29] MEDS: Nicotine 14 MG PATCH.TD24 TD SCH (09:33)
[2020-10-29] MEDS: Cholecalciferol (D-3) 1,000 UNIT (25MCG) TABLET PO SCH (09:34)
[2020-10-29] MEDS: *HR* HYDROcodone/Acet 7.5/325 mg TABLET PO PRN ×2 (09:34→21:54)
[2020-10-29] MEDS: polyethylene glycoL 3350 17 GM POWD.PACK PO SCH (09:34)
[2020-10-29] MEDS: lisinopriL 20 MG TABLET PO SCH (09:34)
[2020-10-29] MEDS: *HR* Rivaroxaban 10 MG TABLET PO SCH (17:29)
[2020-10-29] MEDS: *HR* HYDROcodone/Acet 5/325 mg TABLET PO PRN (17:29)
[2020-10-29] MEDS: Melatonin 3 MG TABLET PO PRN (21:54)
[2020-10-30] MEDS: *HR* HYDROcodone/Acet 5/325 mg TABLET PO PRN (08:35)
[2020-10-30] MEDS: Cholecalciferol (D-3) 1,000 UNIT (25MCG) TABLET PO SCH (08:35)
[2020-10-30] MEDS: lisinopriL 20 MG TABLET PO SCH (08:35)
[2020-10-30] MEDS: Ibuprofen 600 MG TABLET PO PRN ×2 (08:35→21:03)
[2020-10-30] MEDS: Sennosides/Docusate Sodium TABLET PO SCH ×2 (08:35→21:03)
[2020-10-30] MEDS: Nicotine 14 MG PATCH.TD24 TD SCH (08:36)
[2020-10-30] MEDS: polyethylene glycoL 3350 17 GM POWD.PACK PO SCH (08:36)
[2020-10-30] MEDS: *HR* Rivaroxaban 10 MG TABLET PO SCH (16:09)
[2020-10-30] MEDS: *HR* HYDROcodone/Acet 7.5/325 mg TABLET PO PRN (21:02)
[2020-10-30] MEDS: Melatonin 3 MG TABLET PO PRN (21:03)
[2020-10-31] MEDS: Ibuprofen 600 MG TABLET PO PRN ×2 (08:45→20:49)
[2020-10-31] MEDS: Sennosides/Docusate Sodium TABLET PO SCH ×2 (08:49→20:49)
[2020-10-31] MEDS: Nicotine 14 MG PATCH.TD24 TD SCH (08:49)
[2020-10-31] MEDS: *HR* HYDROcodone/Acet 7.5/325 mg TABLET PO PRN ×2 (08:49→20:49)
[2020-10-31] MEDS: Cholecalciferol (D-3) 1,000 UNIT (25MCG) TABLET PO SCH (08:49)
[2020-10-31] MEDS: lisinopriL 20 MG TABLET PO SCH (08:49)
[2020-10-31] MEDS: polyethylene glycoL 3350 17 GM POWD.PACK PO SCH (08:50)
[2020-10-31] MEDS: *HR* Rivaroxaban 10 MG TABLET PO SCH (16:52)
[2020-10-31] MEDS: *HR* HYDROcodone/Acet 5/325 mg TABLET PO PRN (16:52)
[2020-10-31] MEDS: Melatonin 3 MG TABLET PO PRN (20:49)
[2020-11-01 06:30] LABS: Basophils # 0.1 K/mcL (0.0-0.2); Basophils % 1.3 %; Eosinophils # 0.4 K/mcL (0.0-0.6); Eosinophils % 5.8 %; Hematocrit 33.8 % (35.3-44.9); Hemoglobin 11.4 g/dL (11.5-15.4); Immature Granulocytes % 0.2 % (0-4); Lymphocytes # 1.9 K/mcL (0.6-4.6); Lymphocytes % 29.7 %; Mean Corpuscular HGB Conc 33.7 g/dL (31.6-35.5); Mean Corpuscular Hemoglobin 35.1 pg (28.0-33.3); Mean Platelet Volume 9.4 fL (9.4-12.4); Monocytes # 0.7 K/mcL (0.0-1.3); Monocytes % 11.2 %; Neutrophils # 3.3 K/mcL (1.6-8.9); Platelet Count 310 K/mcL (140-400); Red Blood Count 3.25 M/mcL (3.82-4.97); Red Cell Distribution Width 13.2 % (11.5-14.5); Segmented Neutrophils % 51.8 %; White Blood Count 6.4 K/mcL (4.3-11.1)
[2020-11-01 06:46] LABS: BUN/Creatinine Ratio 19 (6-26); Blood Urea Nitrogen 11 mg/dL (8-23); Calcium 9.3 mg/dL (8.6-10.3); Carbon Dioxide 29 mEq/L (23-29); Chloride 102 mEq/L (98-107); Glucose 84 mg/dL (70-105); Osmolality,Calculated 283 (280-300); Potassium 4.1 mEq/L (3.5-5.1); Sodium 137 mEq/L (136-145); eGFR For African Americans > 60 (> 60); eGFR For Non-African Americans > 60 (> 60)
[2020-11-01] MEDS: Sennosides/Docusate Sodium TABLET PO SCH ×2 (09:42→20:59)
[2020-11-01] MEDS: Nicotine 14 MG PATCH.TD24 TD SCH (09:42)
[2020-11-01] MEDS: lisinopriL 20 MG TABLET PO SCH (09:43)
[2020-11-01] MEDS: Cholecalciferol (D-3) 1,000 UNIT (25MCG) TABLET PO SCH (09:43)
[2020-11-01] MEDS: polyethylene glycoL 3350 17 GM POWD.PACK PO SCH (09:43)
[2020-11-01] MEDS: *HR* HYDROcodone/Acet 7.5/325 mg TABLET PO PRN ×2 (09:43→20:59)
[2020-11-01] MEDS: Ibuprofen 600 MG TABLET PO PRN ×2 (09:43→20:58)
[2020-11-01] MEDS: *HR* Rivaroxaban 10 MG TABLET PO SCH (16:51)
[2020-11-01] MEDS: *HR* HYDROcodone/Acet 5/325 mg TABLET PO PRN (16:51)
[2020-11-01] MEDS: Melatonin 3 MG TABLET PO PRN (20:58)
[2020-11-02] MEDS: polyethylene glycoL 3350 17 GM POWD.PACK PO SCH (07:41)
[2020-11-02] MEDS: Cholecalciferol (D-3) 1,000 UNIT (25MCG) TABLET PO SCH (07:47)
[2020-11-02] MEDS: *HR* HYDROcodone/Acet 7.5/325 mg TABLET PO PRN ×2 (07:48→20:36)
[2020-11-02] MEDS: Sennosides/Docusate Sodium TABLET PO SCH ×2 (07:48→19:59)
[2020-11-02] MEDS: Nicotine 14 MG PATCH.TD24 TD SCH (07:48)
[2020-11-02] MEDS: lisinopriL 20 MG TABLET PO SCH (07:48)
[2020-11-02] MEDS: Ibuprofen 600 MG TABLET PO PRN ×2 (07:54→20:35)
[2020-11-02] MEDS: *HR* Rivaroxaban 10 MG TABLET PO SCH (16:29)
[2020-11-02] MEDS: Melatonin 3 MG TABLET PO PRN (20:35)
[2020-11-03 06:34] VITALS: BP 133/81
[2020-11-03] MEDS: Nicotine 14 MG PATCH.TD24 TD SCH (08:19)
[2020-11-03] MEDS: *HR* HYDROcodone/Acet 7.5/325 mg TABLET PO PRN (08:19)
[2020-11-03] MEDS: Ergocalciferol (VIT D2) 50,000 UNIT (1.25MG) CAP PO SCH (08:20)
[2020-11-03] MEDS: Ibuprofen 600 MG TABLET PO PRN (08:20)
[2020-11-03] MEDS: Cholecalciferol (D-3) 1,000 UNIT (25MCG) TABLET PO SCH (08:20)
[2020-11-03] MEDS: Sennosides/Docusate Sodium TABLET PO SCH (08:20)
[2020-11-03] MEDS: lisinopriL 20 MG TABLET PO SCH (08:20)
[2020-11-03] MEDS: polyethylene glycoL 3350 17 GM POWD.PACK PO SCH (08:20)
== END 2020-11-03 11:57 | disposition home health service (06) | DRG 561 ==
LOC: INPPIK 19:14
PROVIDERS: ADMIT Family Medicine; ATTEND Family Medicine